=== PATIENT | female | born 1965 | race African-American/Black ===

== ENCOUNTER 2019-09-23 22:10 | Emergency (ER) | payer BC, OTHER ==
[~2019-09-23] VITALS: Ht 167.6 cm; Wt 86.2 kg
[2019-09-23 22:15] VITALS: BP_SYST 133
--- NOTE | 2019-09-23 22:15 | NUR ---
Patient triaged and placed in waiting room. VSS and patient appears in no acute distress at this time. Accompanied by FAM MEMBER, awaiting available bed, and MD notified of need for MSE.
--- NOTE | 2019-09-24 00:22 | NUR ---
Patient to ER bed 7 to gown for evaluation. Side rails up. Report given to ALLAN HORNE.
--- NOTE | 2019-09-24 00:30 | NUR ---
Patient complains of dizziness and vomiting x 15 since 6pm. Pt states she thinks it is food poisoning but when she asked the other ladies she was with and no one else got sick. Pt states she has 6/10 pain in the abdomen, and a headache of 7/10. Pt states she has chills and denies diarrhea. No other injuries/complaints per patient or noted.
[2019-09-24] MEDS ORDERED: NACL 0.9% 1,000 ML IV ONE ×2 (00:50→03:00)
--- NOTE | 2019-09-24 00:52 | NUR ---
ER Dr. Perez at bedside examining patient.
--- NOTE | 2019-09-24 01:00 | NUR ---
provided pt with emesis bag Pt vomited x1
[2019-09-24 01:01] LABS: BASOPHILS # (AUTO) 0.1 K/uL (0.0-0.2); BASOPHILS % (AUTO) 0.8 % (0.0-2.0); EOSINOPHILS % (AUTO) 0.2 % (0.0-4.0); HEMATOCRIT 40.1 % (36-48); HEMOGLOBIN 13.3 g/dL (12.0-16.0); LYMPHOCYTES # (AUTO) 1.1 K/uL (1.0-5.5); LYMPHOCYTES % (AUTO) 10.3 % (20.5-51.5); MEAN CORPUSCULAR HEMOGLOBIN 31 pg (27-31); MEAN CORPUSCULAR HGB CONC 33 % (32-36); MEAN CORPUSCULAR VOLUME 93 fL (79.0-98.0); MONOCYTES # (AUTO) 0.4 K/uL (0.0-1.0); MONOCYTES % (AUTO) 3.8 % (1.7-9.3); NEUTROPHILS # (AUTO) 8.7 K/uL (1.8-7.7); NEUTROPHILS % (AUTO) 84.9 % (40.0-70.0); PLATELET COUNT (AUTO) 281 K/uL (130-430); RED BLOOD CELL COUNT(AUTO) 4.29 MIL/uL (4.2-6.2); RED CELL DISTRIBUTION WIDTH 13.1 % (9.0-15.0); WHITE BLOOD COUNT (AUTO) 10.2 K/uL (4.8-10.8)
[2019-09-24 01:06] LABS: CALCIUM 8.6 mg/dL (8.4-11.0); POTASSIUM 3.9 mmol/L (3.5-5.1)
[2019-09-24 01:07] LABS: CREATININE 0.88 mg/dL (0.55-1.30)
--- NOTE | 2019-09-24 01:07 | NUR ---
PATIENT WENT TO RADIOLOGY IN STABLE CONDITION.
[2019-09-24 01:09] LABS: PROTHROMBIN TIME 9.9 SECS (9.5-12.5)
[2019-09-24 01:12] LABS: ALBUMIN 3.8 g/dL (3.4-4.8); TOTAL BILIRUBIN 0.3 mg/dL (0.0-1.0)
[2019-09-24] MEDS ORDERED: MECLIZINE HCL 25 MG TABLET (ANITVERT) PO ONE (02:15)
--- NOTE | 2019-09-24 02:50 | NUR ---
ER Dr. Perez at bedside examining patient.
[2019-09-24] MEDS ORDERED: LORazepam 2 MG/ML VIAL IVP ONE (03:00)
[2019-09-24] MEDS ORDERED: ONDANSETRON HCL 4 MG/2 ML VIAL IVP ONE (03:00)
--- NOTE | 2019-09-24 03:55 | NUR ---
ER Dr. Perez at bedside re-examining patient.
[2019-09-24 04:22] VITALS: BP_SYST 131
--- NOTE | 2019-09-24 04:22 | NUR ---
Patient given written and verbal discharge instructions and verbalizes understanding. ER MD discussed with patient the results and treatment provided. Patient in stable condition. ID arm band removed. IV catheter removed intact and dressing applied, no active bleeding. Rx of Meclizine, Ativan, Zofran given. Patient educated on pain management and to follow up with PMD. Pain Scale 0. Opportunity for questions provided and answered. Medication side effect fact sheet provided.
== END 2019-09-24 04:22 | disposition home or self-care (01) ==
LOC: SED 22:10
DX: A05.9 Bacterial foodborne intoxication, unspecified (principal); R42 Dizziness and giddiness; E86.0 Dehydration; R11.2 Nausea with vomiting, unspecified; Z90.49 Acquired absence of other specified parts of digestive tract; Z90.710 Acquired absence of both cervix and uterus
CPT/HCPCS: 36415; 70450; 80053; 82150; 83690; 85025; 85610; 96361; 96374; 96375; 99284; J2060; J2405; J7030; J8597